=== PATIENT | female | born 1995 | race Caucasian/White ===

== ENCOUNTER 2017-01-24 07:51 | Inpatient (IN) | payer MEDICAID ==
[~2017-01-24] VITALS: Ht 167.6 cm; Wt 64.2 kg
[~2017-01-24 07:51] MED LIST: ACID1TAB7 PO; IBUP-1222 PO; IBUP200T48 PO; OXYC-229 PO; OXYC-302 PO; PREN1TAB52 PO
[2017-01-24] MEDS ORDERED: HYDROmorphone 1 MG/ML, 1ML ONE ×5 (08:14→14:49)
[2017-01-24] MEDS ORDERED: ONDANSETRON 2MG/ML, 2ML ONE (08:14)
[2017-01-24] MEDS ORDERED: SODIUM CHLORIDE 0.9% 1,000ML IVBOLUS ONE (08:30)
[2017-01-24] MEDS ORDERED: ONDANSETRON 2MG/ML, 2ML IVPush ONE (08:30)
[2017-01-24 08:41] LABS: BLOOD UREA NITROGEN 8 mg/dL (7-18)
[2017-01-24 08:42] LABS: ASPARTATE AMINO TRANSFERASE 18 U/L (15-37)
[2017-01-24] MEDS ORDERED: DIPHENHYDRAMINE 50 MG/ML, 1ML ONE (08:43)
[2017-01-24] MEDS: HYDROmorphone 1 MG/ML, 1ML IVPush PRN ×4 (08:46→13:14)
[2017-01-24] MEDS ORDERED: DIPHENHYDRAMINE 50 MG/ML, 1ML IVPush ONE (09:00)
[2017-01-24] MEDS ORDERED: OMNIPAQUE 350 MG/ML, 75ML BOTTLE ONE (09:23)
[2017-01-24] MEDS ORDERED: CLINDAMYCIN PMX 600MG/50ML 50 ML ONE (10:55)
[2017-01-24] MEDS ORDERED: CLINDAMYCIN PMX 600MG/50ML 50 ML IVPB ONE (11:00)
[2017-01-24] MEDS ORDERED: TIOT18CA INH (13:43)
[2017-01-24] MEDS ORDERED: SODIUM CHLORIDE FLUSH 10ML SYR IVF PRN (14:00)
[2017-01-24] MEDS ORDERED: SODIUM CHLORIDE 0.9% 1,000 ML IV SCH (14:44)
[2017-01-24] MEDS ORDERED: DEXAMETHASONE 4 MG/ML, 5ML ONE ×2 (14:49→17:41)
[2017-01-24] MEDS: D5%-0.45% NACL 1,000 ML IV SCH (14:56)
[2017-01-24] MEDS: HYDROmorphone 1 MG/ML, 1ML IV PRN ×2 (14:56→16:48)
[2017-01-24] MEDS ORDERED: ONDANSETRON 2MG/ML, 2ML IVP PRN (15:00)
[2017-01-24] MEDS: CLINDAMYCIN PMX 900MG/50ML 50 ML IV SCH ×2 (15:00→23:44)
[2017-01-24] MEDS ORDERED: DEXAMETHASONE 4 MG/ML, 5ML IVPush ONE ×2 (15:00)
[2017-01-24] MEDS ORDERED: FENTANYL PF 100 MCG/2ML ONE (17:06)
[2017-01-24] MEDS ORDERED: MIDAZOLAM 1 MG/ML, 5ML IVPush ONE (17:15)
[2017-01-24] MEDS ORDERED: SUCCINYLCHOLINE 20 MG/ML, 10ML IVPush ONE (17:15)
[2017-01-24] MEDS ORDERED: MIDAZOLAM 1 MG/ML, 2ML ONE (17:30)
[2017-01-24] MEDS ORDERED: FENTANYL PF 250 MCG/5ML ONE (17:30)
[2017-01-24] MEDS ORDERED: BUPIVACAINE/PF-EPI 0.25% 1:200K ONE (17:34)
[2017-01-24] MEDS ORDERED: LIDOCAINE 1%-EPI 1:100K, 50ML ONE (17:34)
[2017-01-24] MEDS ORDERED: PROPOFOL 10 MG/ML, 20ML ONE (17:41)
[2017-01-24] MEDS ORDERED: OXYcodone 5 MG/5 ML ORAL.SOL UDC PO PRN (18:00)
[2017-01-24] MEDS ORDERED: ONDANSETRON 2MG/ML, 2ML IVPush PRN (18:00)
[2017-01-24] MEDS ORDERED: SENNA/DOCUSATE TABLET NG PRN (18:00)
[2017-01-24] MEDS ORDERED: FENTANYL PF 100 MCG/2ML IVPush ONE (18:00)
[2017-01-24] MEDS ORDERED: PROPOFOL 10 MG/ML, 100ML IV ONE (18:00)
[2017-01-24] MEDS ORDERED: SUCCINYLCHOLINE 20 MG/ML, 10ML ONE (18:00)
[2017-01-24] MEDS ORDERED: PHARMACY MAY ADJ FOR RENAL FX MC SCH (18:00)
[2017-01-24] MEDS ORDERED: MIDAZOLAM 1 MG/ML, 5ML ONE (18:00)
[2017-01-24] MEDS ORDERED: HYDROmorphone 1 MG/ML, 1ML IV PRN (18:00)
[2017-01-24] MEDS ORDERED: LABETALOL 5MG/ML, 20ML IV PRN (18:00)
[2017-01-24] MEDS ORDERED: LIDOCAINE-MPF 1%, 2ML ENDO PRN (18:00)
[2017-01-24] MEDS ORDERED: ACETAMINOPHEN 325 MG TABLET PO PRN (18:00)
[2017-01-24] MEDS ORDERED: BISACODYL 10 MG SUPP PR PRN (18:00)
[2017-01-24] MEDS ORDERED: hydrALAzine 20 MG/ML, 1ML IV PRN (18:00)
[2017-01-24] MEDS ORDERED: SENNOSIDES 8.8 MG/5 ML ORAL SOL NG PRN (18:00)
[2017-01-24] MEDS ORDERED: METOCLOPRAMIDE 5 MG/ML, 2ML IV PRN (18:00)
[2017-01-24] MEDS ORDERED: LACTULOSE 20 GM/30 ML UDC NG PRN (18:00)
[2017-01-24] MEDS ORDERED: BACITRACIN 50,000 UNIT ONE (18:16)
[2017-01-24] MEDS: FENTANYL PF 100 MCG/2ML IV PRN ×3 (20:43→23:24)
[2017-01-24] MEDS: PROPOFOL 100 ML IV PRN ×2 (20:44→23:24)
[2017-01-24] MEDS: ALBUTEROL/IPRATROPIUM 2.5MG/0.5MG, 3 ML INLINE SCH ×2 (20:53→22:00)
[2017-01-24] MEDS: FAMOTIDINE 20 MG/2 ML IV SCH ×2 (21:00→21:16)
[2017-01-24] MEDS: CHLORHEXIDINE MOUTHWASH 15 ML UDC MM SCH (21:16)
[2017-01-24 21:24] LABS: ABG COLLECTION SITE LEFT RADIAL; COLLATERAL CIRCULATION TESTING NORMAL
[2017-01-25] MEDS: FENTANYL PF 100 MCG/2ML IV PRN ×3 (01:00→03:13)
[2017-01-25] MEDS: ALBUTEROL/IPRATROPIUM 2.5MG/0.5MG, 3 ML INLINE SCH ×6 (02:00→22:00)
[2017-01-25] MEDS: PROPOFOL 100 ML IV PRN (03:15)
[2017-01-25] MEDS: DEXAMETHASONE 4 MG/ML, 5ML IV SCH ×3 (03:15→17:56)
[2017-01-25] MEDS ORDERED: MIDAZOLAM 1 MG/ML, 5ML ONE (03:27)
[2017-01-25] MEDS: MIDAZOLAM HCL 25 MG in SODIUM CHLORIDE 0.9% 245 ML IV PRN ×3 (03:31→09:10)
[2017-01-25] MEDS: FENTANYL PF 2,500 MCG in SODIUM CHLORIDE 0.9% 200 ML IV PRN ×2 (04:09→20:25)
[2017-01-25] MEDS: D5%-0.45% NACL 1,000 ML IV SCH ×2 (04:16→04:22)
[2017-01-25 04:28] LABS: ABG COLLECTION SITE LEFT RADIAL; COLLATERAL CIRCULATION TESTING NORMAL
[2017-01-25 04:42] LABS: ASPARTATE AMINO TRANSFERASE 18 U/L (15-37); BLOOD UREA NITROGEN 6 mg/dL (7-18)
[2017-01-25 04:58] LABS: DIFF TOTAL CELLS COUNTED 100 CELL DIFF
[2017-01-25 04:59] VITALS: BP 124/70
[2017-01-25 05:01] LABS: VERIFY COUNTS? YES
[2017-01-25 05:02] LABS: LARGE PLATELETS 1+
[2017-01-25] MEDS: CLINDAMYCIN PMX 900MG/50ML 50 ML IV SCH (06:04)
[2017-01-25] MEDS ORDERED: POTASSIUM CHLORIDE 10% 40 MEQ/30 ML UDC NG SCH (09:00)
[2017-01-25] MEDS ORDERED: MAGNESIUM SULFATE 3 GM in SODIUM CHLORIDE 0.9% 100 ML IV ONE (09:00)
[2017-01-25] MEDS: FAMOTIDINE 20 MG/2 ML IV SCH ×3 (09:00→20:36)
[2017-01-25] MEDS: POTASSIUM CHLORIDE 20 MEQ PACKET NG SCH ×2 (09:10→20:35)
[2017-01-25] MEDS: CHLORHEXIDINE MOUTHWASH 15 ML UDC MM SCH ×2 (09:10→20:36)
[2017-01-25 10:56] LABS: DAU SCREEN DISCLAIMER
[2017-01-25] MEDS ORDERED: ERTAPENEM 1 GM in SODIUM CHLORIDE 0.9% 50 ML IV SCH (11:00)
[2017-01-25 11:32] LABS: PATH.CAST-FLAG NOT PRESENT; SPERM-FLAG NOT PRESENT; SRC-FLAG NOT PRESENT; XTAL-FLAG NOT PRESENT; YLC-FLAG NOT PRESENT
[2017-01-25] MEDS: MIDAZOLAM HCL 50 MG in SODIUM CHLORIDE 0.9% 240 ML IV PRN ×3 (12:27→22:32)
[2017-01-25 12:30] LABS: HIV 1&2 ANTIBODY SCREEN Nonreactive (Nonreactive); HIV-1 p24 ANTIGEN Nonreactive (Nonreactive)
[2017-01-25] MEDS: MEROPENEM 1 GM in SODIUM CHLORIDE 0.9% 100 ML IV SCH ×2 (14:05→19:38)
[2017-01-25] MEDS ORDERED: SODIUM CHLORIDE 0.9% 100 ML IV SCH (16:30)
[2017-01-25] MEDS: SODIUM CHLORIDE 0.9% 1,000 ML IV SCH (17:56)
[2017-01-25] MEDS: ENOXAPARIN 80 MG/0.8 ML SQ SCH (20:36)
[2017-01-26] MEDS: ALBUTEROL/IPRATROPIUM 2.5MG/0.5MG, 3 ML INLINE SCH ×3 (02:00→10:00)
[2017-01-26] MEDS: SODIUM CHLORIDE 0.9% 1,000 ML IV SCH ×3 (02:49→22:28)
[2017-01-26] MEDS: MIDAZOLAM HCL 50 MG in SODIUM CHLORIDE 0.9% 240 ML IV PRN ×2 (03:35→09:19)
[2017-01-26 04:11] VITALS: BP 154/69
[2017-01-26] MEDS: MEROPENEM 1 GM in SODIUM CHLORIDE 0.9% 100 ML IV SCH ×3 (04:23→22:27)
[2017-01-26 04:28] LABS: ABG COLLECTION SITE RIGHT RADIAL; COLLATERAL CIRCULATION TESTING NORMAL
[2017-01-26 06:06] LABS: BLOOD UREA NITROGEN 14 mg/dL (7-18)
[2017-01-26] MEDS: FAMOTIDINE 20 MG/2 ML IV SCH (07:38)
[2017-01-26] MEDS: ENOXAPARIN 80 MG/0.8 ML SQ SCH ×2 (07:38→22:28)
[2017-01-26] MEDS: CHLORHEXIDINE MOUTHWASH 15 ML UDC MM SCH ×2 (07:38→21:00)
[2017-01-26] MEDS: POTASSIUM CHLORIDE 20 MEQ PACKET NG SCH (08:30)
[2017-01-26] MEDS ORDERED: QUETIAPINE 25MG TABLET NG SCH (09:00)
[2017-01-26] MEDS ORDERED: RACEPINEPHRINE INH 2.25%, 0.5ML ONE (13:24)
[2017-01-26] MEDS ORDERED: DEXAMETHASONE 4 MG/ML, 1ML IVPush ONE (14:00)
[2017-01-26] MEDS: ALBUTEROL/IPRATROPIUM 2.5MG/0.5MG, 3 ML NPPB PRN ×2 (14:00→19:34)
[2017-01-26] MEDS ORDERED: FLUCONAZOLE 200 MG/100 ML 100 ML IV SCH (18:00)
[2017-01-26] MEDS: HYDROmorphone 1 MG/ML, 1ML IV PRN (19:19)
[2017-01-27] MEDS: FENTANYL PF 100 MCG/2ML IVPush PRN ×4 (00:41→23:05)
[2017-01-27] MEDS: MEROPENEM 1 GM in SODIUM CHLORIDE 0.9% 100 ML IV SCH ×3 (04:10→20:57)
[2017-01-27 04:35] LABS: ABG COLLECTION SITE LEFT RADIAL; COLLATERAL CIRCULATION TESTING NORMAL
[2017-01-27 04:44] VITALS: BP 177/102
[2017-01-27 05:03] LABS: BLOOD UREA NITROGEN 17 mg/dL (7-18)
[2017-01-27 12:45] VITALS: BP 155/92
[2017-01-27] MEDS: ONDANSETRON 2MG/ML, 2ML IVPush PRN (13:11)
[2017-01-27] MEDS: HYDROmorphone 1 MG/ML, 1ML IV PRN ×3 (13:11→20:57)
[2017-01-27] MEDS ORDERED: OXYcodone 5 MG/5 ML ORAL.SOL UDC ONE (16:25)
[2017-01-27] MEDS: OXYcodone 5 MG/5 ML ORAL.SOL UDC PO PRN (16:28)
[2017-01-27 19:23] VITALS: BP 126/70
[2017-01-27] MEDS: ENOXAPARIN 40 MG/0.4 ML SQ SCH (20:57)
[2017-01-27] MEDS: SODIUM CHLORIDE 0.9% 1,000 ML IV SCH (21:06)
[2017-01-28] MEDS: HYDROmorphone 1 MG/ML, 1ML IV PRN ×7 (03:41→20:46)
[2017-01-28 03:58] VITALS: BP 125/66
[2017-01-28] MEDS: MEROPENEM 1 GM in SODIUM CHLORIDE 0.9% 100 ML IV SCH ×3 (05:09→20:35)
[2017-01-28 05:54] LABS: BLOOD UREA NITROGEN 14 mg/dL (7-18)
[2017-01-28] MEDS: SODIUM CHLORIDE 0.9% 1,000 ML IV SCH ×2 (07:48→20:00)
[2017-01-28 07:56] VITALS: BP 130/85
[2017-01-28] MEDS: OXYcodone 5 MG/5 ML ORAL.SOL UDC PO PRN ×2 (09:38→16:10)
[2017-01-28] MEDS: ONDANSETRON 2MG/ML, 2ML IVPush PRN (14:32)
[2017-01-28 14:56] VITALS: BP 111/62
[2017-01-28] MEDS ORDERED: VANCOMYCIN PER PHARMACY MC PRN (17:30)
[2017-01-28] MEDS ORDERED: PHARMACOKINETIC MONITORING MC PRN (18:00)
[2017-01-28] MEDS ORDERED: PHARMACOKINETIC CONSULTATION MC ONE (18:00)
[2017-01-28] MEDS: VANCOMYCIN 1,500 MG in SODIUM CHLORIDE 0.9% 250 ML IV SCH (18:09)
[2017-01-28] MEDS ORDERED: OMNIPAQUE 350 MG/ML, 75ML BOTTLE ONE (18:24)
[2017-01-28] MEDS ORDERED: LIDOCAINE 1%-EPI 1:100K, 50ML ONE (20:00)
[2017-01-28 20:28] VITALS: BP 124/60
[2017-01-28] MEDS ORDERED: HYDROmorphone 1 MG/ML, 1ML IV PRN (21:00)
[2017-01-28] MEDS ORDERED: METOCLOPRAMIDE 5 MG/ML, 2ML IV PRN (21:00)
[2017-01-28] MEDS ORDERED: MEPERIDINE/PF 25MG/0.5ML IVPush PRN (21:00)
[2017-01-28] MEDS ORDERED: hydrALAzine 20 MG/ML, 1ML IV PRN (21:00)
[2017-01-28] MEDS ORDERED: OXYcodone 5 MG/5 ML ORAL.SOL UDC PO PRN (21:00)
[2017-01-28] MEDS ORDERED: ONDANSETRON 2MG/ML, 2ML IVPush PRN (21:00)
[2017-01-28] MEDS ORDERED: LABETALOL 5MG/ML, 20ML IV PRN (21:00)
[2017-01-28] MEDS ORDERED: MIDAZOLAM 1 MG/ML, 2ML IV PRN (21:00)
[2017-01-28 21:09] LABS: PATH.CAST-FLAG NOT PRESENT; SPERM-FLAG NOT PRESENT; SRC-FLAG NOT PRESENT; XTAL-FLAG NOT PRESENT; YLC-FLAG NOT PRESENT
[2017-01-28] MEDS ORDERED: FENTANYL PF 250 MCG/5ML ONE (21:09)
[2017-01-28] MEDS ORDERED: MIDAZOLAM 1 MG/ML, 2ML ONE (21:09)
[2017-01-28] MEDS ORDERED: PHENYLEPHRINE NASAL 0.5%, 15ML SPRAY ONE (21:12)
[2017-01-28] MEDS ORDERED: PROPOFOL 10 MG/ML, 20ML ONE (21:18)
[2017-01-28] MEDS ORDERED: DEXAMETHASONE 4 MG/ML, 5ML ONE (21:18)
[2017-01-28] MEDS ORDERED: ROCURONIUM 10 MG/ML ONE (21:18)
[2017-01-28] MEDS ORDERED: SUCCINYLCHOLINE 20 MG/ML, 10ML ONE (21:18)
[2017-01-28] MEDS: ENOXAPARIN 40 MG/0.4 ML SQ SCH (22:00)
[2017-01-28] MEDS ORDERED: KETAMINE 10 MG/ML, 20ML ONE (22:02)
[2017-01-28] MEDS ORDERED: PROPOFOL 100 ML IV ONE (23:05)
[2017-01-28] MEDS ORDERED: LIDOCAINE 1%-EPI 1:100K, 50ML INFIL ONE (23:18)
[2017-01-28] MEDS ORDERED: MIDAZOLAM HCL 25 MG in SODIUM CHLORIDE 0.9% 245 ML IV PRN (23:45)
[2017-01-28] MEDS ORDERED: PROPOFOL 100 ML IV PRN (23:45)
[2017-01-28] MEDS ORDERED: FENTANYL PF 2,500 MCG in SODIUM CHLORIDE 0.9% 200 ML IV PRN (23:45)
[2017-01-28] MEDS: FENTANYL PF 2,500 MCG in SODIUM CHLORIDE 0.9% 200 ML IV PRN (23:53)
[2017-01-29] MEDS: PROPOFOL 100 ML IV PRN ×4 (01:46→18:31)
[2017-01-29] MEDS: MIDAZOLAM HCL 50 MG in SODIUM CHLORIDE 0.9% 240 ML IV PRN ×3 (01:47→17:50)
[2017-01-29] MEDS ORDERED: ACETAMINOPHEN 650 MG SUPP PR PRN (04:00)
[2017-01-29 04:23] LABS: ABG COLLECTION SITE RIGHT RADIAL; COLLATERAL CIRCULATION TESTING NORMAL
[2017-01-29 04:37] LABS: ASPARTATE AMINO TRANSFERASE 55 U/L (15-37); BLOOD UREA NITROGEN 7 mg/dL (7-18)
[2017-01-29 05:00] VITALS: BP 101/63
[2017-01-29] MEDS: SODIUM CHLORIDE 0.9% 1,000 ML IV SCH ×2 (05:07→17:20)
[2017-01-29] MEDS: MEROPENEM 1 GM in SODIUM CHLORIDE 0.9% 100 ML IV SCH ×3 (05:07→19:52)
[2017-01-29] MEDS: VANCOMYCIN 1,500 MG in SODIUM CHLORIDE 0.9% 250 ML IV SCH (06:04)
[2017-01-29] MEDS: FENTANYL PF 2,500 MCG in SODIUM CHLORIDE 0.9% 200 ML IV PRN (16:40)
[2017-01-29] MEDS ORDERED: VANCOMYCIN 2,000 MG in SODIUM CHLORIDE 0.9% 500 ML IV SCH (20:30)
[2017-01-29] MEDS ORDERED: VANCOMYCIN 2,000 MG in SODIUM CHLORIDE 0.9% 250 ML IV SCH (20:30)
[2017-01-29] MEDS: VANCOMYCIN 2,000 MG in SODIUM CHLORIDE 0.9% 500 ML IV SCH (20:49)
[2017-01-29] MEDS: ENOXAPARIN 40 MG/0.4 ML SQ SCH (22:40)
[2017-01-30 04:00] VITALS: BP 136/56
[2017-01-30] MEDS: MEROPENEM 1 GM in SODIUM CHLORIDE 0.9% 100 ML IV SCH ×3 (04:14→20:19)
[2017-01-30] MEDS: MIDAZOLAM HCL 50 MG in SODIUM CHLORIDE 0.9% 240 ML IV PRN ×3 (04:14→21:58)
[2017-01-30] MEDS: PROPOFOL 100 ML IV PRN ×4 (04:14→21:59)
[2017-01-30 05:12] LABS: BLOOD UREA NITROGEN 8 mg/dL (7-18)
[2017-01-30] MEDS ORDERED: POTASSIUM CHLORIDE 10% 40 MEQ/30 ML UDC PO ONE (07:30)
[2017-01-30] MEDS: VANCOMYCIN 2,000 MG in SODIUM CHLORIDE 0.9% 500 ML IV SCH ×2 (09:33→21:13)
[2017-01-30] MEDS: SODIUM CHLORIDE 0.9% 1,000 ML IV SCH ×2 (09:42→21:13)
[2017-01-30] MEDS: FENTANYL PF 2,500 MCG in SODIUM CHLORIDE 0.9% 200 ML IV PRN (12:40)
[2017-01-30] MEDS ORDERED: OMNIPAQUE 350 MG/ML, 75ML BOTTLE ONE (14:09)
[2017-01-30] MEDS: ENOXAPARIN 40 MG/0.4 ML SQ SCH (21:58)
[2017-01-31 04:00] VITALS: BP 110/67
[2017-01-31 05:00] LABS: BLOOD UREA NITROGEN 6 mg/dL (7-18)
[2017-01-31] MEDS: MEROPENEM 1 GM in SODIUM CHLORIDE 0.9% 100 ML IV SCH ×3 (05:05→20:52)
[2017-01-31] MEDS: MIDAZOLAM HCL 50 MG in SODIUM CHLORIDE 0.9% 240 ML IV PRN ×2 (08:00→20:54)
[2017-01-31] MEDS: PROPOFOL 100 ML IV PRN ×2 (11:03→17:52)
[2017-01-31] MEDS: FENTANYL PF 2,500 MCG in SODIUM CHLORIDE 0.9% 200 ML IV PRN (11:06)
[2017-01-31] MEDS: ENOXAPARIN 40 MG/0.4 ML SQ SCH (20:54)
[2017-01-31] MEDS: SODIUM CHLORIDE 0.9% 1,000 ML IV SCH (22:00)
[2017-02-01] MEDS: PROPOFOL 100 ML IV PRN ×2 (03:59→09:40)
[2017-02-01] MEDS: MEROPENEM 1 GM in SODIUM CHLORIDE 0.9% 100 ML IV SCH ×3 (03:59→20:38)
[2017-02-01 04:41] LABS: BLOOD UREA NITROGEN 11 mg/dL (7-18)
[2017-02-01] MEDS: FENTANYL PF 2,500 MCG in SODIUM CHLORIDE 0.9% 200 ML IV PRN ×2 (04:41→21:59)
[2017-02-01 04:54] VITALS: BP 78/45
[2017-02-01] MEDS: ALBUTEROL SULFATE 2.5 MG/3 ML NPPB PRN ×2 (07:30→14:27)
[2017-02-01] MEDS: MIDAZOLAM HCL 50 MG in SODIUM CHLORIDE 0.9% 240 ML IV PRN ×3 (11:25→20:38)
[2017-02-01] MEDS: MICAFUNGIN 150 MG in SODIUM CHLORIDE 0.9% 100 ML IV SCH (18:33)
[2017-02-01] MEDS: ENOXAPARIN 40 MG/0.4 ML SQ SCH (22:00)
[2017-02-02 04:00] VITALS: BP 107/77
[2017-02-02 05:16] LABS: BLOOD UREA NITROGEN 13 mg/dL (7-18)
[2017-02-02] MEDS: MEROPENEM 1 GM in SODIUM CHLORIDE 0.9% 100 ML IV SCH ×3 (06:26→20:13)
[2017-02-02 07:44] LABS: ABG COLLECTION SITE LEFT RADIAL; COLLATERAL CIRCULATION TESTING NORMAL
[2017-02-02 08:18] LABS: FIO2 40 %
[2017-02-02] MEDS: RISPERIDONE 1 MG/ML ORAL SOLN NG SCH ×2 (10:00→21:04)
[2017-02-02] MEDS: MIDAZOLAM HCL 50 MG in SODIUM CHLORIDE 0.9% 240 ML IV PRN ×2 (11:35→22:10)
[2017-02-02] MEDS: PROPOFOL 100 ML IV PRN ×2 (11:42→17:38)
[2017-02-02] MEDS: FENTANYL PF 2,500 MCG in SODIUM CHLORIDE 0.9% 200 ML IV PRN (15:03)
[2017-02-02] MEDS: MICAFUNGIN 150 MG in SODIUM CHLORIDE 0.9% 100 ML IV SCH (17:35)
[2017-02-02] MEDS: SODIUM CHLORIDE 0.9% 1,000 ML IV SCH ×2 (22:07)
[2017-02-02] MEDS: ENOXAPARIN 40 MG/0.4 ML SQ SCH (22:07)
[2017-02-03] MEDS: PROPOFOL 100 ML IV PRN ×3 (03:32→19:49)
[2017-02-03 04:00] VITALS: BP 122/78
[2017-02-03] MEDS: MEROPENEM 1 GM in SODIUM CHLORIDE 0.9% 100 ML IV SCH ×3 (05:41→19:52)
[2017-02-03 07:09] LABS: BLOOD UREA NITROGEN 20 mg/dL (7-18)
[2017-02-03] MEDS: RISPERIDONE 1 MG/ML ORAL SOLN NG SCH ×2 (09:25→21:01)
[2017-02-03] MEDS: MIDAZOLAM HCL 50 MG in SODIUM CHLORIDE 0.9% 240 ML IV PRN ×2 (09:26→19:34)
[2017-02-03] MEDS: FENTANYL PF 2,500 MCG in SODIUM CHLORIDE 0.9% 200 ML IV PRN (11:37)
[2017-02-03] MEDS: MICAFUNGIN 150 MG in SODIUM CHLORIDE 0.9% 100 ML IV SCH (17:33)
[2017-02-03] MEDS: ENOXAPARIN 40 MG/0.4 ML SQ SCH (21:29)
[2017-02-03] MEDS: SODIUM CHLORIDE 0.9% 1,000 ML IV SCH (21:37)
[2017-02-04] MEDS: PROPOFOL 100 ML IV PRN (02:39)
[2017-02-04 04:00] VITALS: BP 120/72
[2017-02-04] MEDS: MEROPENEM 1 GM in SODIUM CHLORIDE 0.9% 100 ML IV SCH ×3 (04:03→20:42)
[2017-02-04 05:15] LABS: ASPARTATE AMINO TRANSFERASE 28 U/L (15-37); BLOOD UREA NITROGEN 20 mg/dL (7-18)
[2017-02-04] MEDS: FAMOTIDINE 20 MG/2 ML IVPush SCH ×2 (09:30→20:42)
[2017-02-04] MEDS: ONDANSETRON 2MG/ML, 2ML IVPush PRN ×3 (10:17→21:09)
[2017-02-04] MEDS: RISPERIDONE 1 MG/ML ORAL SOLN NG SCH ×2 (10:17→20:42)
[2017-02-04] MEDS: FENTANYL PF 2,500 MCG in SODIUM CHLORIDE 0.9% 200 ML IV PRN (10:18)
[2017-02-04] MEDS ORDERED: PROMETHAZINE 25 MG/ML, 1ML ONE (12:23)
[2017-02-04] MEDS ORDERED: PROMETHAZINE 25 MG/ML, 1ML IM PRN (12:30)
[2017-02-04] MEDS: MICAFUNGIN 150 MG in SODIUM CHLORIDE 0.9% 100 ML IV SCH (18:13)
[2017-02-04] MEDS: SODIUM CHLORIDE 0.9% 1,000 ML IV SCH (22:00)
[2017-02-05] MEDS: FENTANYL PF 100 MCG/2ML IV PRN ×2 (00:25→18:43)
[2017-02-05] MEDS: ENOXAPARIN 40 MG/0.4 ML SQ SCH ×2 (00:25→23:39)
[2017-02-05 04:00] VITALS: BP 109/50
[2017-02-05] MEDS: FENTANYL PF 100 MCG/2ML IVPush PRN (04:15)
[2017-02-05] MEDS: MEROPENEM 1 GM in SODIUM CHLORIDE 0.9% 100 ML IV SCH ×3 (04:15→20:09)
[2017-02-05 05:29] LABS: BLOOD UREA NITROGEN 16 mg/dL (7-18)
[2017-02-05] MEDS: RISPERIDONE 1 MG/ML ORAL SOLN NG SCH ×2 (09:56→21:00)
[2017-02-05] MEDS: FAMOTIDINE 20 MG/2 ML IVPush SCH ×2 (09:56→20:09)
[2017-02-05] MEDS ORDERED: PHENOL THROAT SPRAY BOTTLE MM PRN (16:00)
[2017-02-05] MEDS: MICAFUNGIN 150 MG in SODIUM CHLORIDE 0.9% 100 ML IV SCH (17:00)
[2017-02-05] MEDS: FENTANYL PF 2,500 MCG in SODIUM CHLORIDE 0.9% 200 ML IV PRN (17:12)
[2017-02-05] MEDS: CHLORHEXIDINE MOUTHWASH 15 ML UDC MM SCH (20:09)
[2017-02-05] MEDS: SODIUM CHLORIDE 0.9% 1,000 ML IV SCH (22:00)
[2017-02-06] MEDS: MEROPENEM 1 GM in SODIUM CHLORIDE 0.9% 100 ML IV SCH ×3 (04:27→20:40)
[2017-02-06] MEDS: FENTANYL PF 100 MCG/2ML IV PRN (04:28)
[2017-02-06 04:32] VITALS: BP 107/56
[2017-02-06 04:33] LABS: BLOOD UREA NITROGEN 20 mg/dL (7-18)
[2017-02-06] MEDS: CHLORHEXIDINE MOUTHWASH 15 ML UDC MM SCH ×2 (08:40→20:40)
[2017-02-06] MEDS: RISPERIDONE 1 MG/ML ORAL SOLN NG SCH (08:40)
[2017-02-06] MEDS: FAMOTIDINE 20 MG/2 ML IVPush SCH (08:40)
[2017-02-06] MEDS: OXYcodone 5 MG/5 ML ORAL.SOL UDC PO PRN (13:08)
[2017-02-06] MEDS: FLUCONAZOLE 200 MG TABLET PO SCH (15:55)
[2017-02-06] MEDS: FAMOTIDINE 20 MG TABLET PO SCH (20:41)
[2017-02-06 23:00] VITALS: BP 143/95
[2017-02-07] MEDS: ENOXAPARIN 40 MG/0.4 ML SQ SCH ×2 (00:34→23:22)
[2017-02-07] MEDS: OXYcodone 5 MG/5 ML ORAL.SOL UDC PO PRN ×3 (00:40→23:22)
[2017-02-07] MEDS: MEROPENEM 1 GM in SODIUM CHLORIDE 0.9% 100 ML IV SCH ×3 (04:25→20:57)
[2017-02-07] MEDS: SODIUM CHLORIDE 0.9% 1,000 ML IV SCH (04:27)
[2017-02-07 04:28] VITALS: BP 116/79
[2017-02-07 06:00] LABS: BLOOD UREA NITROGEN 17 mg/dL (7-18)
[2017-02-07] MEDS: CHLORHEXIDINE MOUTHWASH 15 ML UDC MM SCH ×2 (09:24→20:57)
[2017-02-07] MEDS: FAMOTIDINE 20 MG TABLET PO SCH ×2 (09:24→20:57)
[2017-02-07 09:38] VITALS: BP 150/69
[2017-02-07] MEDS: FLUCONAZOLE 200 MG TABLET PO SCH (15:15)
[2017-02-07 15:18] VITALS: BP 105/68
[2017-02-07 19:48] VITALS: BP 112/70
[2017-02-08 01:41] VITALS: BP 90/62
[2017-02-08] MEDS: SODIUM CHLORIDE 0.9% 1,000 ML IV SCH (04:30)
[2017-02-08] MEDS: MEROPENEM 1 GM in SODIUM CHLORIDE 0.9% 100 ML IV SCH ×3 (04:58→21:03)
[2017-02-08 05:31] LABS: BLOOD UREA NITROGEN 11 mg/dL (7-18)
[2017-02-08 08:00] VITALS: BP 109/66
[2017-02-08] MEDS: FAMOTIDINE 20 MG TABLET PO SCH ×2 (08:34→21:05)
[2017-02-08] MEDS: CHLORHEXIDINE MOUTHWASH 15 ML UDC MM SCH ×2 (08:34→21:05)
[2017-02-08 14:30] VITALS: BP 116/85
[2017-02-08] MEDS: FLUCONAZOLE 200 MG TABLET PO SCH (16:04)
[2017-02-08 18:35] VITALS: BP 100/71
[2017-02-09] MEDS: ENOXAPARIN 40 MG/0.4 ML SQ SCH (00:18)
[2017-02-09 00:59] VITALS: BP 100/67
[2017-02-09] MEDS: SODIUM CHLORIDE 0.9% 1,000 ML IV SCH (04:30)
[2017-02-09] MEDS: MEROPENEM 1 GM in SODIUM CHLORIDE 0.9% 100 ML IV SCH ×2 (04:54→13:09)
[2017-02-09 05:18] LABS: BLOOD UREA NITROGEN 10 mg/dL (7-18)
[2017-02-09 08:15] VITALS: BP 125/80
[2017-02-09] MEDS ORDERED: SENN1TAB7 NG (09:17)
[2017-02-09] MEDS ORDERED: FLUC200T PO (09:17)
[2017-02-09] MEDS ORDERED: CHLO473M MM (09:17)
[2017-02-09] MEDS ORDERED: OXYC5SOL8 PO (09:17)
[2017-02-09] MEDS ORDERED: ALPR0.254 PO (09:17)
[2017-02-09] MEDS ORDERED: MERO1VIA15 IV (09:17)
[2017-02-09] MEDS: FAMOTIDINE 20 MG TABLET PO SCH (09:43)
[2017-02-09] MEDS: CHLORHEXIDINE MOUTHWASH 15 ML UDC MM SCH (09:43)
[2017-02-09] MEDS: OXYcodone 5 MG/5 ML ORAL.SOL UDC PO PRN (13:15)
== END 2017-02-09 14:05 | disposition home or self-care (01) | DRG 853 ==
LOC: ED 09:28 → EDIP 13:59 → CCU 16:10 → 4NOR 01-27 12:19 → CCU 01-28 22:46 → 4NOR 02-06 22:56
PROVIDERS: ADMIT Internal Medicine; ATTEND Internal Medicine
PROC: 0W9 Anatomical Regions, General, Drainage (ICD-10-PCS; 2017-01-24)
PROC: 0K9 Muscles, Drainage (ICD-10-PCS; 2017-01-24)
PROC: 0CTW0Z1 Resection of Upper Tooth, Multiple, Open Approach (ICD-10-PCS; 2017-01-24)
PROC: 5A1945Z Respiratory Ventilation, 24-96 Consecutive Hours (ICD-10-PCS; 2017-01-24)
PROC: 0BH17EZ Insertion of Endotracheal Airway into Trachea, Via Natural or Artificial Opening (ICD-10-PCS; 2017-01-24)
PROC: 0W9500Z Drainage of Lower Jaw with Drainage Device, Open Approach (ICD-10-PCS; principal; 2017-01-24 21:00)
PROC: 0T9B70Z Drainage of Bladder with Drainage Device, Via Natural or Artificial Opening (ICD-10-PCS; 2017-01-25)
PROC: 0W9500Z Drainage of Lower Jaw with Drainage Device, Open Approach (ICD-10-PCS; 2017-01-28)
PROC: 0W9 Anatomical Regions, General, Drainage (ICD-10-PCS; 2017-01-28)
PROC: 0W9200Z Drainage of Face with Drainage Device, Open Approach (ICD-10-PCS; 2017-01-28)
PROC: 0K9 Muscles, Drainage (ICD-10-PCS; 2017-01-28)
PROC: 5A1955Z Respiratory Ventilation, Greater than 96 Consecutive Hours (ICD-10-PCS; 2017-01-28)
PROC: 0BH17EZ Insertion of Endotracheal Airway into Trachea, Via Natural or Artificial Opening (ICD-10-PCS; 2017-01-28)
PROC: 02HV33Z Insertion of Infusion Device into Superior Vena Cava, Percutaneous Approach (ICD-10-PCS; 2017-02-08)
PROC: B5181ZA Fluoroscopy of Superior Vena Cava using Low Osmolar Contrast, Guidance (ICD-10-PCS; 2017-02-08)
PROC: 3E04329 Introduction of Other Anti-infective into Central Vein, Percutaneous Approach (ICD-10-PCS; 2017-02-08)
PROC: B548ZZA Ultrasonography of Superior Vena Cava, Guidance (ICD-10-PCS; 2017-02-08)
DX: A41.9 Sepsis, unspecified organism (principal); J96.00 Acute respiratory failure, unspecified whether with hypoxia or hypercapnia; E43 Unspecified severe protein-calorie malnutrition; J15.4 Pneumonia due to other streptococci; L03.211 Cellulitis of face; K12.2 Cellulitis and abscess of mouth; Z99.11 Dependence on respirator [ventilator] status; L02.01 Cutaneous abscess of face; D69.6 Thrombocytopenia, unspecified; F12.90 Cannabis use, unspecified, uncomplicated; F17.210 Nicotine dependence, cigarettes, uncomplicated; M27.2 Inflammatory conditions of jaws; K04.7 Periapical abscess without sinus; Z16.11 Resistance to penicillins; Z16.24 Resistance to multiple antibiotics; B37.3 Candidiasis of vulva and vagina; D63.8 Anemia in other chronic diseases classified elsewhere; Z88.0 Allergy status to penicillin; Z83.3 Family history of diabetes mellitus; Z91.013 Allergy to seafood; Z68.24 Body mass index [BMI] 24.0-24.9, adult; Z91.040 Latex allergy status
CPT/HCPCS: 36415; 36569; 36600; 70100; 70487; 71010; 74230; 76937; 77001; 80048; 80053; 80202; 80307; 81001; 82803; 83605; 83735; 84100; 84145; 84478; 85025; 85651; 86140; 86703; 86803; 87040; 87070; 87075; 87077; 87081; 87106; 87181; 87184; 87205; 87899; 94002; 94003; 94640; 96365; 96366; 96375; 96376; J1100; J1170; J1650; J2185; J2248; J2250; J2405; J2704; J3010; J3370; J3475; J7613; J7620; Q9967; C1751; G0435; J0330; J1200; J1450; J7030; J7040; J7050; S0028

== ENCOUNTER 2017-07-24 19:37 | Emergency (ER) | payer MEDICAID ==
[~2017-07-24] VITALS: Ht 167.6 cm; Wt 60.1 kg
[~2017-07-24 19:37] MED LIST changes: +ALPR0.254 PO; +CHLO473M MM; +FLUC200T PO; +MERO1VIA15 IV; -OXYC-229 PO; +OXYC-307 PO; +OXYC5SOL8 PO; +SENN1TAB7 NG; +TIOT18CA INH
[2017-07-24] MEDS ORDERED: SODIUM CHLORIDE 0.9% 1,000ML IVBOLUS ONE (20:00)
[2017-07-24 20:12] LABS: HEMATOCRIT 40.8 % (34.6-47.8); HEMOGLOBIN 13.7 g/dL (11.7-16.4); WHITE BLOOD COUNT 10.4 x10^3/uL (3.4-10)
[2017-07-24 20:17] LABS: BLOOD UREA NITROGEN 12 mg/dL (7-18)
[2017-07-24 20:18] LABS: ASPARTATE AMINO TRANSFERASE 10 U/L (15-37)
[2017-07-24] MEDS ORDERED: ACETAMINOPHEN 325 MG TABLET PO ONE (20:30)
[2017-07-24] MEDS ORDERED: ACETAMINOPHEN 325 MG TABLET ONE (20:37)
[2017-07-24 21:29] VITALS: BP 124/69
[2017-07-24 21:53] VITALS: BP 102/63
== END 2017-07-24 22:00 | disposition home or self-care (01) ==
LOC: ED 21:50
DX: O20.0 Threatened abortion (principal)
CPT/HCPCS: 36415; 36430; 76801; 80053; 84702; 85025; 86850; 86900; 99285; J2790

== ENCOUNTER 2017-09-09 16:57 | Emergency (ER) | payer MEDICAID ==
[~2017-09-09] VITALS: Ht 167.6 cm; Wt 60.0 kg
[2017-09-09] MEDS ORDERED: METOCLOPRAMIDE 5 MG/ML, 2ML IVPush ONE (17:00)
[2017-09-09] MEDS ORDERED: ONDANSETRON 2MG/ML, 2ML ONE ×2 (17:00→20:41)
[2017-09-09] MEDS ORDERED: ONDANSETRON 2MG/ML, 2ML IVPush ONE ×2 (17:00→21:00)
[2017-09-09] MEDS ORDERED: METOCLOPRAMIDE 5 MG/ML, 2ML ONE (17:00)
[2017-09-09] MEDS ORDERED: PLEASE ENTER HEIGHT AND WEIGHT MC SCH (17:06)
[2017-09-09] MEDS ORDERED: MORPHINE SULFATE 4 MG/ML, 1ML IVPush PRN (17:30)
[2017-09-09] MEDS ORDERED: SODIUM CHLORIDE 0.9% 1,000ML IVBOLUS ONE (17:30)
[2017-09-09 17:36] LABS: HEMATOCRIT 42.8 % (34.6-47.8); HEMOGLOBIN 14.4 g/dL (11.7-16.4); WHITE BLOOD COUNT 18.9 x10^3/uL (3.4-10)
[2017-09-09 17:48] LABS: ASPARTATE AMINO TRANSFERASE 13 U/L (15-37); BLOOD UREA NITROGEN 10 mg/dL (7-18)
[2017-09-09 17:57] LABS: DIFF TOTAL CELLS COUNTED 100 CELL DIFF
[2017-09-09 17:59] LABS: VERIFY COUNTS? YES
[2017-09-09] MEDS ORDERED: SODIUM CHLORIDE 0.9% 1,000 ML IV ONE (18:00)
[2017-09-09] MEDS ORDERED: morphine SULFATE 10 MG/ML, 1ML ONE (18:11)
[2017-09-09] MEDS ORDERED: SODIUM CHLORIDE FLUSH 10ML SYR IVF ONE (18:30)
[2017-09-09 20:45] VITALS: BP 99/80
== END 2017-09-09 20:48 | disposition home or self-care (01) ==
LOC: ED 20:08
DX: O99.282 Endocrine, nutritional and metabolic diseases complicating pregnancy, second trimester (principal); O26.892 Other specified pregnancy related conditions, second trimester; Z87.891 Personal history of nicotine dependence; Z88.0 Allergy status to penicillin; Z3A.22 22 weeks gestation of pregnancy
CPT/HCPCS: 36415; 80053; 81003; 85025; 87324; 89055; 96361; 96374; 96375; 96376; 99285; J2405; J2765; J7030

== ENCOUNTER 2018-02-08 10:27 | Inpatient (IN) | payer MEDICAID ==
[~2018-02-08] VITALS: Ht 167.6 cm; Wt 71.3 kg
[~2018-02-08 10:27] MED LIST changes: -IBUP200T48 PO; +IBUP200T49 PO
[2018-02-10] MEDS ORDERED: LACTATED RINGERS 1,000 ML IV SCH ×2 (05:33→05:45)
[2018-02-10] MEDS ORDERED: OXYTOCIN 30U/ 0.9% NaCL 500ML 500 ML IV SCH (05:33)
[2018-02-10 05:41] VITALS: BP 109/65
[2018-02-10] MEDS ORDERED: PREN-3 PO (05:53)
[2018-02-10] MEDS ORDERED: METOCLOPRAMIDE 5 MG/ML, 2ML IV ONE (06:00)
[2018-02-10] MEDS ORDERED: SODIUM CITRATE/CITRIC ACID 30 ML UDC PO ONE (06:00)
[2018-02-10] MEDS ORDERED: LACTATED RINGERS 1,000 ML IVBOLUS ONE (06:00)
[2018-02-10 06:24] LABS: BASOPHILS # (AUTO) 0.04 x10^3/uL (0-0.1); BASOPHILS % (AUTO) 0 % (0-1); EOSINOPHILS # (AUTO) 0.17 x10^3/uL (0-0.4); EOSINOPHILS % (AUTO) 2 % (1-7); LYMPHOCYTES # (AUTO) 3.19 x10^3/uL (1-3.4); LYMPHOCYTES % (AUTO) 30 % (22-44); MD SCAN; MEAN CORPUSCULAR HEMOGLOBIN 32.2 pg (27.0-34.8); MEAN CORPUSCULAR HGB CONC 33.1 g/dL (32.4-35.8); MEAN PLATELET VOLUME 10.2 fL (7.4-10.4); MONOCYTES # (AUTO) 0.82 x10^3/uL (0.2-0.8); MONOCYTES % (AUTO) 8 % (2-9); NEUTROPHILS # (AUTO) 6.55 x10^3/uL (1.8-6.8); NEUTROPHILS % (AUTO) 61 % (42-75); PLATELET COUNT 178 x10^3/uL (130-400); RED BLOOD COUNT 3.74 x10^6/uL (3.82-5.3); RED CELL DISTRIBUTION WIDTH 13.5 % (9.6-15.2)
[2018-02-10] MEDS ORDERED: OXYTOCIN 30U/ 0.9% NaCL 500ML 500 ML ONE (06:25)
[2018-02-10] MEDS ORDERED: SODIUM CITRATE/CITRIC ACID 30 ML UDC ONE (06:25)
[2018-02-10] MEDS ORDERED: NEWBORN KIT ONE (06:25)
[2018-02-10 06:33] LABS: AMPHETAMINE SCREEN, URINE Negative (Negative); BARBITURATE SCREEN, URINE Negative (Negative); BENZODIAZEPINE SCREEN, URINE Negative (Negative); CANNABINOID SCREEN, URINE Positive (Negative); COCAINE SCREEN, URINE Negative (Negative); METHADONE SCREEN, URINE Negative (Negative); OPIATE SCREEN, URINE Negative (Negative)
[2018-02-10] MEDS ORDERED: METOCLOPRAMIDE 5 MG/ML, 2ML ONE (07:11)
[2018-02-10] MEDS ORDERED: FENTANYL PF 100 MCG/2ML ONE (07:23)
[2018-02-10] MEDS ORDERED: EPHEDRINE 50 MG/ML, 1ML ONE (07:23)
[2018-02-10] MEDS ORDERED: CEFAZOLIN 1,000 MG ONE (07:23)
[2018-02-10] MEDS ORDERED: OXYTOCIN 10 UNITS/ML, 1ML ONE (07:23)
[2018-02-10] MEDS ORDERED: DEXAMETHASONE 4 MG/ML, 1ML ONE (07:23)
[2018-02-10] MEDS ORDERED: KETOROLAC 30 MG/1 ML ONE (07:23)
[2018-02-10] MEDS ORDERED: PHENYLEPHRINE 10 MG/ML ONE (07:23)
[2018-02-10] MEDS ORDERED: BUPIVACAINE/PF 0.5% ONE (07:24)
[2018-02-10] MEDS ORDERED: LABETALOL 5MG/ML, 20ML IV PRN (07:30)
[2018-02-10] MEDS ORDERED: EPHEDRINE 50 MG/ML, 1ML IVPush PRN (07:30)
[2018-02-10] MEDS ORDERED: hydrALAzine 20 MG/ML, 1ML IV PRN (07:30)
[2018-02-10] MEDS ORDERED: MEPERIDINE/PF 25MG/0.5ML IVPush PRN (07:30)
[2018-02-10] MEDS ORDERED: MIDAZOLAM 1 MG/ML, 2ML IV PRN (07:30)
[2018-02-10] MEDS ORDERED: FENTANYL PF 100 MCG/2ML IV PRN (07:30)
[2018-02-10] MEDS ORDERED: PROMETHAZINE 25 MG/ML, 1ML IV PRN (07:30)
[2018-02-10] MEDS ORDERED: HYDROmorphone 1 MG/ML, 1ML IV PRN (07:30)
[2018-02-10] MEDS ORDERED: HYDROcodone/APAP 7.5-325MG/15ML UDC PO PRN (07:30)
[2018-02-10] MEDS ORDERED: OXYcodone 5 MG/5 ML ORAL.SOL UDC PO PRN (07:30)
[2018-02-10] MEDS ORDERED: ALBUTEROL SULFATE 2.5 MG/3 ML NPPB PRN (07:30)
[2018-02-10] MEDS ORDERED: ONDANSETRON 2MG/ML, 2ML IVPush PRN (07:30)
[2018-02-10] MEDS ORDERED: ONDANSETRON ODT 4 MG ONE (07:35)
[2018-02-10] MEDS ORDERED: MEPERIDINE/PF 50 MG/ML IVPush PRN (08:00)
[2018-02-10] MEDS ORDERED: SIMETHICONE 80 MG CHEW TAB PO PRN (08:00)
[2018-02-10] MEDS ORDERED: DIPH,PERTUSS(ACELL),TET VAC/PF NC IM-VACC PRN (08:00)
[2018-02-10] MEDS ORDERED: morphine SULFATE 10 MG/ML, 1ML IVPush PRN ×2 (08:00)
[2018-02-10] MEDS ORDERED: ACETAMINOPHEN 325 MG TABLET PO PRN (08:00)
[2018-02-10] MEDS ORDERED: MEASLES,MUMPS&RUBELLA VACC/PF 0.5 ML SQ-VACC PRN (08:00)
[2018-02-10] MEDS ORDERED: ONDANSETRON 2MG/ML, 2ML IV PRN (08:00)
[2018-02-10] MEDS ORDERED: METHYLERGONOVINE 0.2 MG/ML IM PRN (08:00)
[2018-02-10] MEDS ORDERED: MISOPROSTOL 200 MCG TABLET PR PRN (08:00)
[2018-02-10] MEDS ORDERED: ALBUTEROL SULFATE 2.5 MG/3 ML ONE (09:03)
[2018-02-10] MEDS: LACTATED RINGERS 1,000 ML IV SCH ×5 (09:52→23:38)
[2018-02-10] MEDS: PRENATAL VIT/IRON/FA 1 EACH TABLET PO SCH (11:26)
[2018-02-10] MEDS: OXYTOCIN 30U/ 0.9% NaCL 500ML 500 ML IV SCH ×2 (11:26→17:59)
[2018-02-10] MEDS: KETOROLAC 30 MG/1 ML IV SCH ×3 (11:28→20:29)
[2018-02-10 11:37] VITALS: BP 95/48
[2018-02-10] MEDS: OXYcodone/APAP 5/325MG TABLET PO PRN ×4 (11:53→21:41)
[2018-02-10 12:49] VITALS: BP 98/51
[2018-02-10 15:22] VITALS: BP 103/59
[2018-02-10 16:17] LABS: MEAN CORPUSCULAR HGB CONC 32.9 g/dL (32.4-35.8); MEAN CORPUSCULAR VOLUME 97.3 fL (80-100); MEAN PLATELET VOLUME 10.6 fL (7.4-10.4); PLATELET COUNT 179 x10^3/uL (130-400); RED BLOOD COUNT 3.51 x10^6/uL (3.82-5.3); RED CELL DISTRIBUTION WIDTH 13.4 % (9.6-15.2)
[2018-02-10 17:04] LABS: MD YES
[2018-02-10 17:07] LABS: <PLATELET ESTIMATE> ADEQUATE; <PLT MORPHOLOGY> NORMAL PLT MORPH; <RBC MORPHOLOGY> NORMAL; BAND#(MANUAL) 1.48 x10^3/uL; BANDS%(MANUAL) 8 % (0-7); LYMPH#(MANUAL) 2.04 x10^3/uL (1-3.4); LYMPHS% (MANUAL) 11 % (22-44); MONOS#(MANUAL) 0.19 x10^3/uL (0.3-2.7); MONOS% (MANUAL) 1 % (2-9); REACTIVE LYMPHS # (MANUAL) 0.19 x10^3/uL (0-0); REACTIVE LYMPHS % (MANUAL) 1 % (0-0); SEG#(MANUAL) 14.62 x10^3/uL (1.8-6.8); SEGS% (MANUAL) 79 % (42-75)
[2018-02-10] MEDS ORDERED: AZITHROMYCIN 500 MG TABLET PO ONE (18:00)
[2018-02-10 20:00] VITALS: BP 97/59
[2018-02-10] MEDS ORDERED: RHOGAM FROM BLOOD BANK 1 NOTE EA IM/IV ONE (20:30)
[2018-02-10] MEDS: DOCUSATE 100 MG CAPSULE PO PRN (21:41)
[2018-02-10 23:07] VITALS: BP 109/68
[2018-02-11] MEDS: KETOROLAC 30 MG/1 ML IV SCH ×4 (02:35→20:32)
[2018-02-11] MEDS: OXYcodone/APAP 5/325MG TABLET PO PRN ×3 (02:36→12:07)
[2018-02-11] MEDS: LACTATED RINGERS 1,000 ML IV SCH (03:38)
[2018-02-11] MEDS: OXYTOCIN 30U/ 0.9% NaCL 500ML 500 ML IV SCH (03:38)
[2018-02-11 05:00] VITALS: BP 98/59
[2018-02-11 07:30] VITALS: BP 101/48
[2018-02-11] MEDS: PRENATAL VIT/IRON/FA 1 EACH TABLET PO SCH (07:39)
[2018-02-11] MEDS: DOCUSATE 100 MG CAPSULE PO PRN ×2 (07:39→20:33)
[2018-02-11] MEDS ORDERED: AZITHROMYCIN 250 MG TABLET PO ONE (09:00)
[2018-02-11] MEDS: OXYcodone IR 5MG TABLET PO PRN ×2 (16:09→20:33)
[2018-02-11 19:30] VITALS: BP 122/86
[2018-02-11] MEDS ORDERED: ALBUTEROL/IPRATROPIUM 2.5MG/0.5MG, 3 ML ONE (22:21)
[2018-02-11] MEDS ORDERED: ALBUTEROL SULFATE 2.5MG/0.5ML NPPB PRN (22:30)
[2018-02-11] MEDS ORDERED: ALBUTEROL/IPRATROPIUM 2.5MG/0.5MG, 3 ML NPPB PRN (22:30)
[2018-02-12] MEDS: OXYcodone IR 5MG TABLET PO PRN ×3 (01:15→11:25)
[2018-02-12] MEDS: KETOROLAC 30 MG/1 ML IV SCH (02:47)
[2018-02-12 07:13] VITALS: BP 99/65
[2018-02-12] MEDS: DOCUSATE 100 MG CAPSULE PO PRN (07:47)
[2018-02-12] MEDS: PRENATAL VIT/IRON/FA 1 EACH TABLET PO SCH (07:47)
[2018-02-12] MEDS ORDERED: OXYC-302 PO (12:06)
[2018-02-12] MEDS ORDERED: IBUP-1222 PO (12:06)
== END 2018-02-12 14:03 | disposition home or self-care (01) | DRG 765 ==
LOC: LDIP 02-10 05:28 → 2NW 02-10 10:26
PROVIDERS: ADMIT Obstetrics & Gynecology Maternal & Fetal Medicine; ATTEND Obstetrics & Gynecology Maternal & Fetal Medicine
PROC: 10D00Z1 Extraction of Products of Conception, Low, Open Approach (ICD-10-PCS; principal; 2018-02-10)
DX: O34.211 Maternal care for low transverse scar from previous cesarean delivery (principal); O98.82 Other maternal infectious and parasitic diseases complicating childbirth; A74.9 Chlamydial infection, unspecified; O99.52 Diseases of the respiratory system complicating childbirth; J45.909 Unspecified asthma, uncomplicated; Z37.0 Single live birth
CPT/HCPCS: 36415; 80307; 85025; 85461; 86850; 86870; 86900; 86922; 86923; 94640; J0690; J1100; J1885; J2790; J3010; J3490; J7613; J7620; Q0162; J2370; J2590; J2765; J7120

== ENCOUNTER 2018-09-11 12:02 | Emergency (ER) | payer MEDICAID ==
[~2018-09-11] VITALS: Ht 167.6 cm; Wt 54.0 kg
[~2018-09-11 12:02] MED LIST changes: +PREN-3 PO; -SENN1TAB7 NG; +SENN1TAB8 NG
[2018-09-11 12:51] LABS: BASOPHILS # (AUTO) 0.02 x10^3/uL (0-0.1); BASOPHILS % (AUTO) 0 % (0-1); EOSINOPHILS # (AUTO) 0.11 x10^3/uL (0-0.4); EOSINOPHILS % (AUTO) 2 % (1-7); LYMPHOCYTES # (AUTO) 1.45 x10^3/uL (1-3.4); LYMPHOCYTES % (AUTO) 23 % (22-44); MD NO; MEAN CORPUSCULAR HEMOGLOBIN 32.2 pg (27.0-34.8); MEAN CORPUSCULAR HGB CONC 33.5 g/dL (32.4-35.8); MEAN CORPUSCULAR VOLUME 95.9 fL (80-100); MEAN PLATELET VOLUME 9.3 fL (7.4-10.4); MONOCYTES % (AUTO) 8 % (2-9); NEUTROPHILS # (AUTO) 4.23 x10^3/uL (1.8-6.8); NEUTROPHILS % (AUTO) 67 % (42-75); PLATELET COUNT 168 x10^3/uL (130-400); RED BLOOD COUNT 4.22 x10^6/uL (3.82-5.3); RED CELL DISTRIBUTION WIDTH 12.7 % (9.6-15.2)
[2018-09-11 12:54] LABS: ALANINE AMINOTRANSFERASE 185 U/L (12-78); ALBUMIN 3.7 g/dL (3.4-5.0); ANION GAP 9 mmol/L (5-15); CALCIUM 8.4 mg/dL (8.5-10.1); CHLORIDE 107 mmol/L (98-107)
[2018-09-11 12:59] LABS: ALKALINE PHOSPHATASE 93 U/L (45-117); BILIRUBIN,TOTAL 0.6 mg/dL (0.2-1.0); TOTAL PROTEIN 6.7 g/dL (6.4-8.2)
[2018-09-11 16:28] VITALS: BP 97/67
== END 2018-09-11 16:55 | disposition home or self-care (01) ==
LOC: ED 13:19
DX: G89.29 Other chronic pain (principal); R10.84 Generalized abdominal pain
CPT/HCPCS: 36415; 74021; 74176; 80053; 80307; 83690; 84703; 85025; 99284

== ENCOUNTER 2018-10-06 03:27 | Emergency (ER) | payer MEDICAID ==
[~2018-10-06] VITALS: Ht 167.6 cm; Wt 48.5 kg
[2018-10-06 03:30] VITALS: BP 131/84
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
[2018-10-06] MEDS ORDERED: SILVER SULF. CRM 1% , 25GM TP ONE (04:00)
[2018-10-06] MEDS ORDERED: SILVER SULF. CRM 1% , 25GM ONE (04:01)
--- NOTE | 2018-10-06 04:09 | NUR ---
APPLIED ZEINAB PT WILL BE DC'D
--- NOTE | 2018-10-06 04:38 | NUR ---
GIVEN ALL DC INSTRUCTION AND SILVER CREAM PT UNDERSGTOOD
== END 2018-10-06 04:41 | disposition home or self-care (01) ==
LOC: ED 04:25
DX: T23.111A Burn of first degree of right thumb (nail), initial encounter (principal); T31.0 Burns involving less than 10% of body surface; J45.909 Unspecified asthma, uncomplicated; X08.8XXA Exposure to other specified smoke, fire and flames, initial encounter; Y93.89 Activity, other specified; Y92.89 Other specified places as the place of occurrence of the external cause; Y99.8 Other external cause status
CPT/HCPCS: 16000; 99284

== ENCOUNTER 2018-10-08 06:14 | Emergency (ER) | payer MEDICAID ==
[~2018-10-08] VITALS: Ht 167.6 cm; Wt 49.5 kg
--- NOTE | 2018-10-08 06:24 | NUR ---
PT. VERY RESTLESS IN W/C IN TRIAGE. UNABLE TO OBTAIN B/P; WILL OBTAIN IN ROOM.
--- NOTE | 2018-10-08 06:30 | NUR ---
PT. CHANGED INTO GOWN AND IS RESTING ON [facility] RIGHT SIDE LYING. B/P OBTIANED AND CHARTED. PT. HAS YOUNG SON AT BS WITH HER.
[2018-10-08] MEDS ORDERED: PROMETHAZINE 25 MG/ML, 1ML IM ONE (07:00)
[2018-10-08] MEDS ORDERED: LIDOCAINE 1%, 10ML INFIL ONE (07:00)
[2018-10-08] MEDS ORDERED: MAALOX/HYOSCYAMINE/LIDOCAINE 45 ML BTL PO ONE (07:00)
[2018-10-08] MEDS ORDERED: KETOROLAC 30 MG/1 ML IM ONE (07:00)
[2018-10-08] MEDS ORDERED: PROMETHAZINE 25 MG/ML, 1ML ONE (07:29)
[2018-10-08] MEDS ORDERED: KETOROLAC 30 MG/1 ML ONE ×2 (07:29→07:49)
[2018-10-08] MEDS ORDERED: LIDOCAINE-MPF 1%, 5ML ONE (07:29)
[2018-10-08] MEDS ORDERED: MAALOX/HYOSCYAMINE/LIDOCAINE 45 ML BTL ONE (07:30)
[2018-10-08 08:14] VITALS: BP 111/63
--- NOTE | 2018-10-08 08:15 | NUR ---
Patient/Caregiver given discharge instructions and they have confirmed that they understand the instructions. Patient ambulatory with steady gait. AMD PAIN IMPROVED NOW 11/09
== END 2018-10-08 08:16 | disposition home or self-care (01) ==
LOC: ED 07:34
DX: S60.321A Blister (nonthermal) of right thumb, initial encounter (principal); G89.29 Other chronic pain; R10.13 Epigastric pain; R11.2 Nausea with vomiting, unspecified; Z48.00 Encounter for change or removal of nonsurgical wound dressing; Z90.49 Acquired absence of other specified parts of digestive tract; X58.XXXA Exposure to other specified factors, initial encounter; Y93.89 Activity, other specified; Y92.89 Other specified places as the place of occurrence of the external cause; Y99.8 Other external cause status
CPT/HCPCS: 10060; 96372; 99283; J1885; J2550; J3490; 99284

== ENCOUNTER 2018-11-15 18:32 | Inpatient (IN) | payer MEDICAID ==
[~2018-11-15] VITALS: Ht 167.6 cm; Wt 62.5 kg
--- NOTE | 2018-11-15 18:35 | NUR ---
PT BIB [facility] FOR RIGHT QUADRANT ABD PAIN THAT RADIATES TO RIGHT FLANK SINCE SATURDAY. PT WAS TO HAVE A CT SCAN FOR A KIDNEY INFECTION ON SATURDAY AND THIS DID NOT HAPPEN. PT STATES SHE HAS GONE 3 DAYS WITH A DECREASED APPETITE. PT WITH PAIN OF 10/10. PT WITH HX: KIDNEY INFECTIONS. PT WITH TEMP OF 101.9. MD AT BEDSIDE. ASSESSMENT COMPLETED.
[2018-11-15] MEDS ORDERED: SODIUM CHLORIDE FLUSH 10ML SYR IVF ONE (19:00)
[2018-11-15] MEDS ORDERED: ACETAMINOPHEN 325 MG TABLET PO ONE (19:00)
[2018-11-15] MEDS ORDERED: MORPHINE SULFATE 4 MG/ML, 1ML IVPush PRN (19:00)
[2018-11-15] MEDS ORDERED: CEFTRIAXONE 1,000 MG in SODIUM CHLORIDE 0.9% 50 ML IVPB ONE (19:00)
[2018-11-15] MEDS ORDERED: SODIUM CHLORIDE 0.9% 1,000ML IVBOLUS ONE (19:00)
[2018-11-15] MEDS ORDERED: ONDANSETRON 2MG/ML, 2ML IVPush ONE (19:00)
[2018-11-15] MEDS ORDERED: KETOROLAC 30 MG/1 ML IVPush ONE (19:00)
[2018-11-15] MEDS ORDERED: ONDANSETRON 2MG/ML, 2ML ONE (19:02)
[2018-11-15] MEDS ORDERED: KETOROLAC 30 MG/1 ML ONE (19:02)
[2018-11-15] MEDS ORDERED: CEFTRIAXONE PMX 1GM/50ML 50 ML ONE (19:02)
[2018-11-15] MEDS ORDERED: MORPHINE SULFATE 4 MG/ML, 1ML ONE (19:03)
[2018-11-15] MEDS ORDERED: ACETAMINOPHEN 325 MG TABLET ONE (19:03)
--- NOTE | 2018-11-15 19:10 | NUR ---
IV PLACED. BC X 2 DRAWN. ANTIBIOTIC STARTED. IVF HUNG.
--- NOTE | 2018-11-15 19:13 | NUR ---
REPORT GIVEN TO LAUREL MAHARAJ
[2018-11-15 19:19] LABS: BASOPHILS # (AUTO) 0.01 x10^3/uL (0-0.1); BASOPHILS % (AUTO) 0 % (0-1); EOSINOPHILS # (AUTO) 0.01 x10^3/uL (0-0.4); EOSINOPHILS % (AUTO) 0 % (1-7); LYMPHOCYTES # (AUTO) 0.88 x10^3/uL (1-3.4); LYMPHOCYTES % (AUTO) 9 % (22-44); MD NO; MEAN CORPUSCULAR HEMOGLOBIN 32.2 pg (27.0-34.8); MEAN CORPUSCULAR HGB CONC 33.8 g/dL (32.4-35.8); MEAN CORPUSCULAR VOLUME 95.3 fL (80-100); MEAN PLATELET VOLUME 9.1 fL (7.4-10.4); MONOCYTES # (AUTO) 1.11 x10^3/uL (0.2-0.8); MONOCYTES % (AUTO) 11 % (2-9); NEUTROPHILS # (AUTO) 7.88 x10^3/uL (1.8-6.8); NEUTROPHILS % (AUTO) 80 % (42-75); PLATELET COUNT 128 x10^3/uL (130-400); RED CELL DISTRIBUTION WIDTH 13.4 % (9.6-15.2)
--- NOTE | 2018-11-15 19:20 | NUR ---
REPORT RECEIVED FROM SUZANNE MAHARAJ.
[2018-11-15 19:24] LABS: ALANINE AMINOTRANSFERASE 58 U/L (12-78); ALBUMIN 2.7 g/dL (3.4-5.0); ANION GAP 8 mmol/L (5-15); CALCIUM 8.8 mg/dL (8.5-10.1); CHLORIDE 99 mmol/L (98-107)
[2018-11-15 19:29] LABS: ALKALINE PHOSPHATASE 124 U/L (45-117); BILIRUBIN,TOTAL 0.4 mg/dL (0.2-1.0); TOTAL PROTEIN 6.7 g/dL (6.4-8.2)
--- NOTE | 2018-11-15 19:36 | NUR ---
PATIENT TO CT SCAN. STATES PAIN DECREASING POST MORPHINE.
--- NOTE | 2018-11-15 19:47 | NUR ---
BACK FROM CT SCAN. AWAITING RESULT. UNABLE TO GIVE URINE SAMPLE AT THIS TIME. 2ND LITER NS INFUSING.
--- NOTE | 2018-11-15 20:50 | NUR ---
PT AMB TO BR WITH THIS RN FOR UA. UA SENT.
[2018-11-15 20:57] LABS: MICROSCOPIC AUTO
[2018-11-15 20:59] LABS: CULTURE INDICATED? YES
[2018-11-15] MEDS ORDERED: METR-90 PO (21:28)
--- NOTE | 2018-11-15 21:39 | NUR ---
REPORT GIVEN TO LAYTON MAHARAJ. ALL QUESTIONS ANSWERED.
[2018-11-15 21:55] VITALS: BP 97/61
[2018-11-15] MEDS ORDERED: ONDANSETRON 2MG/ML, 2ML IVPush PRN (22:00)
[2018-11-15] MEDS ORDERED: TEMAZEPAM 15 MG CAPSULE PO PRN (22:00)
[2018-11-15] MEDS ORDERED: ACETAMINOPHEN 500 MG TABLET PO PRN (22:00)
[2018-11-15] MEDS ORDERED: IBUPROFEN 600 MG TABLET PO PRN (22:00)
[2018-11-15] MEDS: SODIUM CHLORIDE 0.9% 1,000 ML IV SCH (22:12)
[2018-11-15] MEDS: morphine SULFATE 10 MG/ML, 1ML IVPush PRN (22:12)
[2018-11-15] MEDS: ENOXAPARIN 40 MG/0.4 ML SQ SCH (22:13)
[2018-11-16 01:08] VITALS: BP 101/63
[2018-11-16 04:38] LABS: ANION GAP 4 mmol/L (5-15); CALCIUM 7.5 mg/dL (8.5-10.1); CHLORIDE 110 mmol/L (98-107)
[2018-11-16 04:41] LABS: CREATININE 0.73 mg/dL (0.55-1.02)
[2018-11-16] MEDS: KETOROLAC 30 MG/1 ML IV PRN ×2 (04:45→19:16)
[2018-11-16] MEDS: SODIUM CHLORIDE 0.9% 1,000 ML IV SCH ×3 (04:46→19:16)
[2018-11-16 04:49] LABS: BASOPHILS % (AUTO) 0 % (0-1); EOSINOPHILS # (AUTO) 0.04 x10^3/uL (0-0.4); EOSINOPHILS % (AUTO) 1 % (1-7); LYMPHOCYTES # (AUTO) 0.79 x10^3/uL (1-3.4); LYMPHOCYTES % (AUTO) 11 % (22-44); MD SCAN; MEAN CORPUSCULAR HEMOGLOBIN 32.4 pg (27.0-34.8); MEAN CORPUSCULAR HGB CONC 33.2 g/dL (32.4-35.8); MEAN CORPUSCULAR VOLUME 97.4 fL (80-100); MEAN PLATELET VOLUME 9.6 fL (7.4-10.4); MONOCYTES # (AUTO) 0.87 x10^3/uL (0.2-0.8); MONOCYTES % (AUTO) 12 % (2-9); NEUTROPHILS # (AUTO) 5.45 x10^3/uL (1.8-6.8); NEUTROPHILS % (AUTO) 76 % (42-75); PLATELET COUNT 99 x10^3/uL (130-400); RED BLOOD COUNT 3.84 x10^6/uL (3.82-5.3); RED CELL DISTRIBUTION WIDTH 13.6 % (9.6-15.2)
[2018-11-16 07:12] VITALS: BP 94/56
[2018-11-16] MEDS: OXYcodone/APAP 5/325MG TABLET PO PRN ×2 (08:36→17:14)
[2018-11-16] MEDS: POLYETHYLENE GLYCOL 17 GM PACKET PO SCH (08:42)
[2018-11-16 14:57] VITALS: BP 118/73
[2018-11-16] MEDS: morphine SULFATE 10 MG/ML, 1ML IVPush PRN ×2 (16:05→21:25)
[2018-11-16] MEDS: CEFTRIAXONE PMX 1GM/50ML 50 ML IV SCH (19:15)
[2018-11-16 19:41] VITALS: BP 97/55
[2018-11-16] MEDS: ENOXAPARIN 40 MG/0.4 ML SQ SCH (21:12)
[2018-11-16 23:03] VITALS: BP 100/65
[2018-11-17] MEDS: KETOROLAC 30 MG/1 ML IV PRN (01:16)
[2018-11-17] MEDS: OXYcodone/APAP 5/325MG TABLET PO PRN ×4 (01:16→18:44)
[2018-11-17] MEDS: SODIUM CHLORIDE 0.9% 1,000 ML IV SCH ×3 (01:17→18:28)
[2018-11-17 01:53] VITALS: BP 104/62
[2018-11-17 05:45] LABS: CHLORIDE 110 mmol/L (98-107)
[2018-11-17 05:51] LABS: ANION GAP 7 mmol/L (5-15); CALCIUM 7.7 mg/dL (8.5-10.1); CREATININE 0.53 mg/dL (0.55-1.02)
[2018-11-17 06:05] LABS: MD SCAN; MEAN CORPUSCULAR HEMOGLOBIN 31.7 pg (27.0-34.8); MEAN CORPUSCULAR HGB CONC 32.4 g/dL (32.4-35.8); MEAN CORPUSCULAR VOLUME 97.7 fL (80-100); MEAN PLATELET VOLUME 10.2 fL (7.4-10.4); PLATELET COUNT 98 x10^3/uL (130-400); RED BLOOD COUNT 3.23 x10^6/uL (3.82-5.3)
[2018-11-17 06:08] LABS: BASOPHILS # (AUTO) 0.01 x10^3/uL (0-0.1); BASOPHILS % (AUTO) 0 % (0-1); EOSINOPHILS # (AUTO) 0.12 x10^3/uL (0-0.4); EOSINOPHILS % (AUTO) 2 % (1-7); LYMPHOCYTES # (AUTO) 1.07 x10^3/uL (1-3.4); LYMPHOCYTES % (AUTO) 18 % (22-44); MONOCYTES # (AUTO) 1.04 x10^3/uL (0.2-0.8); MONOCYTES % (AUTO) 18 % (2-9); NEUTROPHILS # (AUTO) 3.62 x10^3/uL (1.8-6.8); NEUTROPHILS % (AUTO) 62 % (42-75)
[2018-11-17 07:26] VITALS: BP 92/53
[2018-11-17] MEDS: CEFTRIAXONE PMX 1GM/50ML 50 ML IV SCH ×2 (08:34→20:24)
[2018-11-17] MEDS: POLYETHYLENE GLYCOL 17 GM PACKET PO SCH (08:34)
[2018-11-17 13:30] VITALS: BP 100/61
[2018-11-17 20:28] VITALS: BP 108/76
[2018-11-18] MEDS: KETOROLAC 30 MG/1 ML IV PRN (00:37)
[2018-11-18] MEDS: SODIUM CHLORIDE 0.9% 1,000 ML IV SCH ×3 (01:33→16:58)
[2018-11-18 02:35] VITALS: BP 105/74
[2018-11-18] MEDS: OXYcodone/APAP 5/325MG TABLET PO PRN ×5 (04:56→23:46)
[2018-11-18 05:17] LABS: CHLORIDE 110 mmol/L (98-107)
[2018-11-18 05:22] LABS: ALANINE AMINOTRANSFERASE 45 U/L (12-78); ALBUMIN 1.8 g/dL (3.4-5.0); ALKALINE PHOSPHATASE 102 U/L (45-117); ANION GAP 5 mmol/L (5-15); BILIRUBIN,TOTAL 0.2 mg/dL (0.2-1.0); CALCIUM 7.4 mg/dL (8.5-10.1); TOTAL PROTEIN 4.9 g/dL (6.4-8.2)
[2018-11-18 06:35] LABS: BASOPHILS # (AUTO) 0.01 x10^3/uL (0-0.1); BASOPHILS % (AUTO) 0 % (0-1); EOSINOPHILS # (AUTO) 0.12 x10^3/uL (0-0.4); EOSINOPHILS % (AUTO) 2 % (1-7); LYMPHOCYTES # (AUTO) 0.98 x10^3/uL (1-3.4); LYMPHOCYTES % (AUTO) 20 % (22-44); MD SCAN; MEAN CORPUSCULAR HEMOGLOBIN 32.5 pg (27.0-34.8); MEAN CORPUSCULAR HGB CONC 33.9 g/dL (32.4-35.8); MEAN CORPUSCULAR VOLUME 95.9 fL (80-100); MEAN PLATELET VOLUME 9.9 fL (7.4-10.4); MONOCYTES # (AUTO) 0.92 x10^3/uL (0.2-0.8); MONOCYTES % (AUTO) 18 % (2-9); NEUTROPHILS # (AUTO) 2.97 x10^3/uL (1.8-6.8); NEUTROPHILS % (AUTO) 60 % (42-75); PLATELET COUNT 106 x10^3/uL (130-400); RED BLOOD COUNT 3.11 x10^6/uL (3.82-5.3)
[2018-11-18 07:37] VITALS: BP 92/57
[2018-11-18] MEDS: CEFTRIAXONE PMX 1GM/50ML 50 ML IV SCH ×2 (08:43→20:45)
[2018-11-18] MEDS: POLYETHYLENE GLYCOL 17 GM PACKET PO SCH (08:44)
[2018-11-18 13:09] VITALS: BP 104/58
[2018-11-18 18:20] VITALS: BP 106/66
[2018-11-19] MEDS: SODIUM CHLORIDE 0.9% 1,000 ML IV SCH ×2 (01:20→08:46)
[2018-11-19 01:37] VITALS: BP 100/51
[2018-11-19 07:55] VITALS: BP 108/71
[2018-11-19] MEDS: POLYETHYLENE GLYCOL 17 GM PACKET PO SCH (08:46)
[2018-11-19] MEDS: CEFTRIAXONE PMX 1GM/50ML 50 ML IV SCH (08:46)
[2018-11-19] MEDS ORDERED: IBUP-1222 PO (09:45)
[2018-11-19 10:10] VITALS: BP 117/87
[2018-11-19] MEDS ORDERED: CIPR500T3 PO (10:59)
== END 2018-11-19 11:02 | disposition home or self-care (01) | DRG 871 ==
LOC: ED 19:44 → EDIP 21:05 → 4WST 21:55 → 4NOR 11-16 22:45 → DCLOUNGE 11-19 10:50
PROVIDERS: ADMIT Hospitalist; ATTEND Hospitalist
DX: A41.50 Gram-negative sepsis, unspecified (principal); E43 Unspecified severe protein-calorie malnutrition; E87.1 Hypo-osmolality and hyponatremia; N10 Acute pyelonephritis; B96.20 Unspecified Escherichia coli [E. coli] as the cause of diseases classified elsewhere; B96.89 Other specified bacterial agents as the cause of diseases classified elsewhere; D63.8 Anemia in other chronic diseases classified elsewhere; D69.6 Thrombocytopenia, unspecified; F17.210 Nicotine dependence, cigarettes, uncomplicated; Z87.440 Personal history of urinary (tract) infections; Z90.49 Acquired absence of other specified parts of digestive tract; Z79.899 Other long term (current) drug therapy; Z88.1 Allergy status to other antibiotic agents; Z91.013 Allergy to seafood; Z98.891 History of uterine scar from previous surgery; Z90.89 Acquired absence of other organs; Z91.040 Latex allergy status; Z68.22 Body mass index [BMI] 22.0-22.9, adult
CPT/HCPCS: 36415; 74176; 80048; 80053; 81001; 83605; 83735; 84100; 84145; 84703; 85025; 87040; 87077; 87086; 87186; 96365; 96375; 99291; G0378; J0696; J1650; J1885; J2405; J2270; J7030

== ENCOUNTER 2019-03-19 19:02 | Emergency (ER) | payer MEDICAID ==
[~2019-03-19] VITALS: Ht 167.6 cm; Wt 50.0 kg
[~2019-03-19 19:02] MED LIST changes: +CIPR500T3 PO; +METR-90 PO; +SENN-177 NG; -SENN1TAB8 NG
--- NOTE | 2019-03-19 19:24 | NUR ---
PT HERE FOR HEAD AND NECK PAIN AFTER PASSING OUT ON SATURDAY. HR ELEVATED. PA AT BEDSIDE. CALL LIGHT IN REACH
[2019-03-19] MEDS ORDERED: SODIUM CHLORIDE 0.9% 1,000ML IVBOLUS ONE ×2 (19:30→21:00)
--- NOTE | 2019-03-19 19:49 | NUR ---
UA SENT TO LAB. TECH AT BEDSIDE TO START PIV AND DRAW LABS
[2019-03-19 20:11] LABS: MICROSCOPIC AUTO
[2019-03-19 20:17] LABS: AMPHETAMINE SCREEN, URINE Positive (Negative); BARBITURATE SCREEN, URINE Negative (Negative); BENZODIAZEPINE SCREEN, URINE Negative (Negative); CANNABINOID SCREEN, URINE Positive (Negative); COCAINE SCREEN, URINE Negative (Negative); CULTURE INDICATED? YES; METHADONE SCREEN, URINE Negative (Negative); OPIATE SCREEN, URINE Negative (Negative)
[2019-03-19 20:34] LABS: ALBUMIN 3.3 g/dL (3.4-5.0); ANION GAP 7 mmol/L (5-15); CALCIUM 9.1 mg/dL (8.5-10.1); CHLORIDE 103 mmol/L (98-107); CREATININE 0.83 mg/dL (0.55-1.02)
[2019-03-19] MEDS ORDERED: CEFTRIAXONE PMX 1GM/50ML 50 ML ONE (20:38)
[2019-03-19] MEDS ORDERED: CEFTRIAXONE PMX 1GM/50ML 50 ML IV ONE (21:00)
[2019-03-19 21:22] LABS: BASOPHILS # (AUTO) 0.03 x10^3/uL (0-0.1); BASOPHILS % (AUTO) 0 % (0-1); EOSINOPHILS # (AUTO) 0.06 x10^3/uL (0-0.4); EOSINOPHILS % (AUTO) 1 % (1-7); LYMPHOCYTES # (AUTO) 1.74 x10^3/uL (1-3.4); LYMPHOCYTES % (AUTO) 16 % (22-44); MD SCAN; MEAN CORPUSCULAR VOLUME 96.9 fL (80-100); MEAN PLATELET VOLUME 9.2 fL (7.4-10.4); MONOCYTES # (AUTO) 0.85 x10^3/uL (0.2-0.8); MONOCYTES % (AUTO) 8 % (2-9); NEUTROPHILS # (AUTO) 8.32 x10^3/uL (1.8-6.8); NEUTROPHILS % (AUTO) 76 % (42-75); PLATELET COUNT 162 x10^3/uL (130-400); RED BLOOD COUNT 4.87 x10^6/uL (3.82-5.3); RED CELL DISTRIBUTION WIDTH 12.1 % (9.6-15.2)
--- NOTE | 2019-03-19 21:32 | NUR ---
ABX AND FLUIDS INFUSING. HR IMPROVED. PT HAS NONEEDS AT THIS TIME. CALL LIGHT IN REACH
[2019-03-19 21:43] VITALS: BP 110/61
--- NOTE | 2019-03-19 22:33 | NUR ---
Patient given discharge instructions and they have confirmed that they understand the instructions. Patient ambulatory with steady gait.Pt given cab voucher for ride home
== END 2019-03-19 22:35 | disposition home or self-care (01) ==
LOC: ED 20:11
DX: N30.00 Acute cystitis without hematuria (principal); R55 Syncope and collapse; F15.10 Other stimulant abuse, uncomplicated; Z90.49 Acquired absence of other specified parts of digestive tract; F17.200 Nicotine dependence, unspecified, uncomplicated; Z88.1 Allergy status to other antibiotic agents
CPT/HCPCS: 36415; 80048; 80307; 81001; 82040; 83605; 84145; 84703; 85025; 87040; 87086; 93005; 96365; 99284; J0696; J7030

== ENCOUNTER 2019-10-28 19:34 | Emergency (ER) | payer MEDICAID ==
[~2019-10-28] VITALS: Ht 167.6 cm; Wt 53.6 kg
[2019-10-28] MEDS ORDERED: OXYcodone/APAP 5/325MG TABLET PO ONE (21:30)
[2019-10-28] MEDS ORDERED: IBUPROFEN 600 MG TABLET PO ONE (21:30)
[2019-10-28] MEDS ORDERED: LIDOCAINE 2%, 20ML SQ ONE (21:30)
[2019-10-28] MEDS ORDERED: LIDOCAINE-MPF 2% ,5ML ONE (21:34)
[2019-10-28] MEDS ORDERED: IBUPROFEN 600 MG TABLET ONE (21:34)
[2019-10-28] MEDS ORDERED: OXYcodone/APAP 5/325MG TABLET ONE (21:35)
[2019-10-28 22:13] VITALS: BP 101/70
== END 2019-10-28 22:15 | disposition home or self-care (01) ==
LOC: ED 21:33
DX: K61.0 Anal abscess (principal); J45.909 Unspecified asthma, uncomplicated; F17.200 Nicotine dependence, unspecified, uncomplicated; Z90.49 Acquired absence of other specified parts of digestive tract; Z90.89 Acquired absence of other organs
CPT/HCPCS: 46050; 99284

== ENCOUNTER 2019-10-31 16:37 | Emergency (ER) | payer MEDICAID ==
[~2019-10-31] VITALS: Ht 167.6 cm; Wt 54.2 kg
[2019-10-31 16:40] VITALS: BP 105/77
--- NOTE | 2019-10-31 17:15 | NUR ---
TASK RN: THIS RN AT BEDSIDE FOR INTERNAL MEDICINE DOCTOR FOR GENITAL EXAM.
--- NOTE | 2019-10-31 17:43 | NUR ---
MD AT BEDSIDE REMOVING PACKING FROM ABCESS NEAR RECTUM.
[2019-10-31] MEDS ORDERED: LIDOCAINE-MPF 1%, 5ML ONE (17:53)
--- NOTE | 2019-10-31 18:22 | NUR ---
AFTER NUMBING THE AREA, RE-PACKED THE PT'S ABCESS AND DISCUSSED FOLLOW-UP PLAN
--- NOTE | 2019-10-31 18:55 | NUR ---
REPORT TO GRICELDA MAHARAJ
--- NOTE | 2019-10-31 19:15 | NUR ---
PT CHART UP FOR RECHECK AWAITING FURTHER ORDERS
== END 2019-10-31 19:49 | disposition home or self-care (01) ==
LOC: ED 17:09
DX: L02.31 Cutaneous abscess of buttock (principal); J45.909 Unspecified asthma, uncomplicated; F17.200 Nicotine dependence, unspecified, uncomplicated; Z90.49 Acquired absence of other specified parts of digestive tract
CPT/HCPCS: 99283